=== PATIENT | male | born 1990 | race Caucasian/White ===

== ENCOUNTER 2025-07-21 20:30 | Emergency (ER) | payer OTHER, SELFPAY ==
[2025-07-21 20:38] VITALS: BP 139/82
[2025-07-21 22:45] VITALS: BMI 28.9
--- NOTE | 2025-07-21 22:47 | ED.GENMED ---
History of Present Illness
General
Chief Complaint: Musculo-Skeletal Complaint
Source: patient
Exam Limitations: none
Time Seen by Provider: 07/21/25 22:28
Nursing documentation reviewed up to this point in time: agreed with
History of Present Illness
History of Present Illness:
Patient is a 34-year-old male presenting to the emergency department with right ankle injury. He states he missed about 1 step while getting off a ladder yesterday and inverted his right ankle. He did not strike his head. He has been able to
ambulate with some discomfort however today noticed a significant amount of bruising and swelling around his ankle. He came to the emergency department to ensure there is no fracture . He denies any numbness/tingling in right ankle or foot.
No other injury sustained.
Review of Systems
Review of Systems
Allergies reviewed?: Yes
All Other Systems: ROS reviewed and negative except as documented in HPI and ROS
Phy Exam
Physical Exam
Physical Exam:
Vitals: Mildly hypertensive, otherwise vital signs stable. Afebrile
General: Patient is well appearing, no acute distress
Skin: Warm and dry, no rashes or lesions
Head: Normocephalic, atraumatic
Throat: Protecting airway
Neck: Normal ROM, no cervical spine tenderness
Cardiac: Regular rate
Pulm: No apparent respiratory distress
Abdomen: Nondistended
Extremities: Diffuse edema of right ankle with ecchymoses below both lateral and medial malleolus. No reproducible tenderness from right ankle including none of medial/lateral malleolus, base of right fifth metatarsal, calcaneus, midfoot/hindfoot,
head of right fibula. Achilles intact. 2+ palpable right DP pulse. Capillary refill WNL.
Neuro: Grossly intact
Psychiatric: Normal affect.
Course
Orders/Labs/Results
Orders:
Orders
07/21/25 20:37
Ankle, Right 3 view CR [CR Ankle - Right Min 3 Views *] Urgent
Comment:
Reason For Exam: pain
07/21/25 22:36
Air Splint Right-Treatment ONCE
Vital Signs
Initial and Last Documented VS:
Initial Vital Signs
Temp Pulse Resp BP Pulse Ox
98.3 F 70 16 139/82 98
07/21/25 20:38 07/21/25 20:38 07/21/25 20:38 07/21/25 20:38 07/21/25 20:38
Last Documented Vital Signs
Temp Pulse Resp BP Pulse Ox
98.3 F 70 16 139/82 98
07/21/25 20:38 07/21/25 20:38 07/21/25 20:38 07/21/25 20:38 07/21/25 22:47
MDM/Problems Addressed
Differential Diagnosis Includes:
Not limited to: Ankle sprain, ankle fracture, Achilles tendon rupture, Lisfranc injury, etc.
MDM/Problems Addressed:
34-year-old male with right ankle injury sustained during inversion injury yesterday. He has been able to weight-bear. No head strike or loss of consciousness. No other injuries sustained. Vitals and physical exam as above. Diffuse edema and
ecchymoses of right ankle with no focal areas of tenderness. RLE neurovascularly intact. X-ray of right ankle reveals no evidence of fracture. Suspect likely ankle sprain. Will provide patient air splint and advised rest, ice, compression,
elevation. Discussed NSAIDs for pain and orthopedic follow-up as needed. Return precautions discussed. Patient stable for discharge home
Chronic conditions affecting care:
N/A
Acute Exacerbation and/or Progression of Chronic Illness:
N/A
*Radiology
Radiology exam reviewed: preliminary read by ED provider (Right ankle x-ray reviewed by me-no acute fracture) and radiology read reviewed
*Pulse Oximetry
SaO2: 98
Oxygen Mode of Delivery: Room air
Patient hypoxic: no
*EKG
Interpreted by ED Provider?: NA
*[employer] Salesperson Interpretation
Rate: [employer] Salesperson- N/A
*Critical Care Note
Total Time (30-74mins, 75-104mins- exclusive of procedures): Not Applicable
ED Attending Note
-
Portions of this chart may have been created with voice recognition software.� Occasional wrong word or��sound alike� substitutions may have occurred due to the inherent limitations of voice recognition software.
Discharge Plan
Departure
Patient Disposition: Home (Routine Discharge)
Date of Disposition: 07/21/25
Time of Disposition: 22:36
Patient with high blood pressure during this ER visit?: Yes
Condition: Good
Discharge Problem:
Right ankle sprain
Instructions: Ankle sprain - ED (DC), BLOOD PRESSURE
Referrals:
Jorge Zayas MD [Active, Orthopedics] - Follow up in 10 days
Activity Restrictions/Additional Instructions:
RETURN TO THE EMERGENCY DEPARTMENT WITH ANY INTRACTABLE PAIN, INABILITY TO AMBULATE, NUMBNESS/TINGLING OF RIGHT ANKLE OR FOOT, WORSENING IN CURRENT SYMPTOMS OR ANY OTHER CONCERNS
- As discussed�your x-ray showed no evidence of a fracture of your right ankle. I suspect you likely sustained an ankle sprain.
- Please wear Aircast and continue to ice, elevate right ankle frequently over the next few days. You can take Motrin and/or Tylenol as needed for pain.
- Follow-up with orthopedics as needed for further evaluation/management.
Monitor your symptoms closely and return to the emergency department with any acute worsening/new symptoms or any other concerns
Interventions
Interventions:
*Risk Screen - Suicide Last Done: 07/21/25 20:38
*General Assessment Last Done: 07/21/25 20:38
*Neglect/Abuse Screening Last Done: 07/21/25 20:38
*ED- Fall Risk Assessment Last Done: 07/21/25 20:38
*ED COVID-19 Vaccine History Last Done: 07/21/25 20:38
ED-Musculoskeletal Assessment Last Done: 07/21/25 22:47
Discharge Date and Time
Print Language: LITHUANIAN
[2025-07-21 22:49] VITALS: BP 124/96
== END 2025-07-21 22:59 | disposition home or self-care (01) ==
LOC: EMR 20:30
PROVIDERS: EMERGENCY PHYSICIAN Emergency Medicine; FAMILY PHYSICIAN Nurse Practitioner Adult Health
DX: S93.401A Sprain of unspecified ligament of right ankle, initial encounter (principal); S90.01XA Contusion of right ankle, initial encounter; X50.1XXA Overexertion from prolonged static or awkward postures, initial encounter
CPT/HCPCS: 29515; 99283; 73610